=== PATIENT | female | born 1980 | race Caucasian/White ===

== ENCOUNTER 2017-11-20 08:28 | Emergency (ER) | payer BC ==
[2017-11-20 08:49] LABS: Hematocrit 37.1 % (37.0-47.0); Hemoglobin 12.2 gm/dL (12.5-16.0); Mean Corpuscular Hemoglobin 26.6 pg (27-31); Mean Corpuscular Hgb Conc 32.9 g/dl (32-36); Neutrophil # 4.8 K/mm3 (1.3-6.0); Neutrophil % 58.2 % (42-75.0); Platelet Count 308 K/mm3 (150-450); Red Blood Count 4.58 M/mm3 (4.2-5.4); Red Cell Distribution Width 13.6 % (11.5-14.0); White Blood Count 8.2 K/mm3 (4.0-10.5)
[2017-11-20] MEDS ORDERED: ASPIRIN 81 MG TAB.CHEW ONE (09:02)
[2017-11-20] MEDS ORDERED: NITROGLYCERIN 0.4 MG/TAB BTL SL ONE (09:04)
[2017-11-20] MEDS ORDERED: ASPIRIN 81 MG TAB.CHEW PO ONE (09:04)
[2017-11-20 09:05] LABS: Prothrombin Time (Patient) 10.2 Seconds (9.0-11.0)
[2017-11-20 09:12] LABS: ALT 31 U/L (19-67); AST 20 U/L (0-48); Albumin * 3.5 gm/dl (3.4-5.0); Alkaline Phosphatase * 99 U/L (50-170); Anion Gap 15.6 mmol/L (6.8-13.8); BUN/Creatinine Ratio 9.6 (9.0-21.6); Bilirubin, Total 0.2 mg/dL (0.0-1.1); Blood Urea Nitrogen 8 mg/dL (3-23); Ca. Corrected For Albumin 8.8 mg/dL (8.4-10.2); Calcium * 8.7 mg/dL (7.9-10.9); Carbon Dioxide 21.9 mmol/L (24-32.6); Chloride 105 mmol/L (97-106); Glucose * 105 mg/dL (70-110); Potassium 3.5 mmol/L (3.4-4.6); Sodium 139 mmol/L (132-142); Total Protein 7.1 gm/dL (6.2-8.2); Troponin I Less than 0.017 ng/ml (0.00-0.10)
[2017-11-20 09:30] LABS: INR 1.02 INR (0.90-1.10)
--- NOTE | 2017-11-20 09:45 | ERNOTE ---
Chest Pain/Cardiac HPI Chief Complaint: Chest Pain Time Seen by Provider: 11/20/17 09:42 Source: patient, family Exam Limitations: no limitations Allergies/Adverse Reactions: Allergies cephalexin [Cephalexin] Allergy (Intermediate, Verified 11/20/17 08:38) Hives Feels like she is on fire. Face starts to swell. Home Medications: HOME MEDICATIONS ALPRAZolam [Xanax (Alprazolam)] 0.25 mg PO DAILY PRN 05/17/13 [Last Taken Unknown] Famotidine [Pepcid AC] 20 mg PO DAILY PRN 05/08/14 [Last Taken Unknown] Lamotrigine [Lamictal] 100 mg PO DAILY 11/20/17 [Last Taken Unknown] Sertraline HCl [Zoloft] 150 mg PO DAILY 11/20/17 [Last Taken Unknown] hydrOXYzine PAMOATE [Vistaril] 25 mg PO TID PRN #30 cap 11/20/17 [Last Taken Unknown] Narrative: Patient has had 2 days of substernal chest pressure that is unrelenting. She denies any diaphoresis she also denies any neck, jaw pain. She rates symptoms as at least moderate in severity. Timing: constant Severity/Quality: moderate Location: substernal Chest Pain Radiation: no radiation Activities at Onset: none Modifying Factors - Improves: Present: nothing Modifying Factors - Worsens: Present: nothing Nitro Today/Relief: 0.4 mg x 1, provided by ED Aspirin Treatment Today: 81 mg x 4, provided by ED Associated Symptoms: Present: shortness of breath Prior Chest Pain/Cardiac Workup: Reports: no prior cardiac workup Review of Systems - Review of Systems Constitutional: Present: See HPI EYE: Present: no symptoms reported ENT: Present: no symptoms reported Respiratory: Present: no symptoms reported Cardiology: Present: See HPI Gastrointestinal/Abdominal: Present: no symptoms reported Genitourinary: Present: no symptoms reported Musculoskeletal: Present: no symptoms reported Skin: Present: no symptoms reported Neurological: Present: no symptoms reported Endocrine: Present: no symptoms reported Hematologic/Lymphatic: Present: no symptoms reported Psych: Present: no symptoms reported - Patient's Past Medical History Patient History - Medical: Anxiety, Depression, GERD Patient History - Cardiac/Respiratory: No pertinent hx Patient History - Cancer: No Hx of Cancer Patient History - Surgical Procedures: Cholecystectomy Patient History - Other: None - Social History Living Situations: home Abuse History: No History of abuse Psych History: Hx of Anxiety, Hx of Depression Alcohol Use: none Drug Use: none Physical Exam - Physical Exam General Appearance: Present: wd/wn, alert, moderate distress Head Exam: Present: normal inspection, no evidence of injury Eye Exam: Normal inspection: bilateral, PERRL: bilateral Ears, Nose, Throat: Present: normal ENT inspection, H, normal pharynx Neck: Present: normal inspection, nontender Respiratory: Present: no respiratory distress, normal breath sounds, no accessory muscle use, chest nontender, lungs clear Cardiovascular/Chest: Present: regular rate, rhythm, no murmur, normal peripheral pulses Gastrointestinal/Abdominal: Present: normal bowel sounds, nontender, nondistended, soft, no organomegaly Rectal Exam: Present: deferred Back Exam: Present: normal inspection, normal range of motion Extremity Exam: Present: normal inspection, non-tender, no edema, normal range of motion Neurological Exam: Present: alert, oriented, normal mood/affect Skin Exam: Present: normal color, warm/dry Lymphatic Exam: Present: no adenopathy ED Progress - Results and Orders Patient's Lab Results:: I have reviewed the patient's lab results. - Vital Signs Patient's Vital Signs:: I have reviewed the patient's vital signs. Vital Signs: Vital Signs 11/20/17 11/20/17 11/20/17 08:32 08:40 09:03 Temperature 36.7 C Pulse Rate 99 97 83 Respiratory 12 20 12 Rate Blood Pressure 151/85 151/85 147/118 O2 Sat by Pulse 100 98 97 Oximetry 11/20/17 09:31 Temperature Pulse Rate 80 Respiratory 18 Rate Blood Pressure 146/98 O2 Sat by Pulse 96 Oximetry - EKG EKG: NSR - X-Ray X-Ray #1 X-Ray: chest Interpretation: Reviewed by me - Progress/Reassessment Chief Complaint: Chest Pain Plan - Plan Plan: Patient has had 2 days of constant substernal chest pressure with a negative troponin, unremarkable EKG and no acute findings on her chest x-ray. I do not suspect that this is cardiac in origin however she'll be referred back to her family physician or they can arrange for an outpatient stress test if they feel it is indicated. Departure Clinical Impression: Acute chest wall pain, Anxiety - Departure Disposition: Home self-care Condition: Good Instructions: Chest Wall Pain, [id number], Panic Attacks, [id number] Referrals: Arya Kaminski ARNP [Primary Care Provider] - Prescriptions: hydrOXYzine PAMOATE [Vistaril] 25 mg PO TID PRN #30 cap PRN Reason: Anxiety
[2017-11-20 10:36] VITALS: BP 136/87
== END 2017-11-20 10:37 | disposition home or self-care (01) ==
LOC: ER 08:28
DX: F41.9 Anxiety disorder, unspecified (principal); R07.89 Other chest pain; F32.9 Major depressive disorder, single episode, unspecified; K21.9 Gastro-esophageal reflux disease without esophagitis